=== PATIENT | male | born 1990 | race American Indian/Alaskan Native ===

== ENCOUNTER 2018-03-10 07:59 | Emergency (ER) | payer OTHER ==
--- NOTE | 2018-03-10 09:13 | EDM.PDOC ---
ED HPI GENERAL MEDICAL PROBLEM - General Chief Complaint: Lower Extremity Injury/Pain Stated Complaint: leg pain Time Seen by Provider: 03/10/18 08:10 Source of Information: Reports: Patient History Limitations: Reports: No Limitations - History of Present Illness INITIAL COMMENTS - FREE TEXT/NARRATIVE: ED ambulatory with c/o pain to right ankle since yesterday after falling while running on track During [employer]. Has been ambulatory. Also pain behind left knee . [employer] sent him to be evaluated so injury could be loogged. Right Ankle Pain Score (Numeric/FACES): 4 - Related Data Allergies Allergy/AdvReac Type Severity Reaction Status Date / Time No Known Allergies Allergy Verified 03/10/18 08:12 Home Meds: Home Meds Ibuprofen 400 mg PO ASDIRECTED PRN 03/10/18 [History] Modafinil 200 mg PO BID 03/10/18 [History] Past Medical History HEENT History: Reports: None, Impaired Vision Cardiovascular History: Reports: None Respiratory History: Reports: Sleep Apnea Gastrointestinal History: Reports: None Genitourinary History: Reports: None Musculoskeletal History: Reports: None Neurological History: Reports: None Other Neuro History: narclospy Psychiatric History: Reports: None Hematologic History: Reports: None Immunologic History: Reports: None Oncologic (Cancer) History: Reports: None Dermatologic History: Reports: None - Infectious Disease History Infectious Disease History: Reports: Chicken Pox - Past Surgical History Head Surgeries/Procedures: Reports: None Other Musculoskeletal Surgeries/Procedures:: knee surgury and l had surgury Social & Family History - Tobacco Use Smoking Status *Q: Never Smoker Second Hand Smoke Exposure: Yes - Caffeine Use Caffeine Use: Reports: Coffee, Energy Drinks, Soda - Recreational Drug Use Recreational Drug Use: No Review of Systems - Review of Systems Review Of Systems: ROS reveals no pertinent complaints other than HPI. ED EXAM, GENERAL - Physical Exam Exam: See Below Exam Limited By: No Limitations General Appearance: Alert, Mild Distress Eye Exam: Bilateral Eye: EOMI Ears: Normal External Exam Throat/Mouth: Normal Voice Neck: Full Range of Motion Respiratory/Chest: No Respiratory Distress Cardiovascular: Normal Peripheral Pulses Extremities: Limited Range of Motion, Other (Full ROM left knee, unable to palpate are of paain. No point tenderness , no crepitus, no swelling, FUll RoM) . No: Normal Range of Motion (right ankle lateral swelling, increased pain with inversion, , extremity warm) Neurological: Alert, Oriented, Normal Cognition Psychiatric: Normal Affect, Normal Mood Skin Exam: Warm, Dry, Intact Course - Vital Signs Last Recorded V/S: Last Vital Signs Temp 97 F 03/10/18 08:07 Pulse 60 03/10/18 08:07 Resp 16 03/10/18 08:07 BP 141/83 H 03/10/18 08:22 Pulse Ox 99 03/10/18 08:07 Departure - Departure Time of Disposition: 08:58 Disposition: Home, Self-Care 01 Condition: Good Clinical Impression: High ankle sprain of right lower extremity Qualifiers: Encounter type: initial encounter Qualified Code(s): S93.431A - Sprain of tibiofibular ligament of right ankle, initial encounter Muscle strain of left knee Qualifiers: Encounter type: initial encounter Qualified Code(s): S86.912A - Strain of unspecified muscle(s) and tendon(s) at lower leg level, left leg, initial encounter - Discharge Information Instructions: Ankle Sprain, [id number] Forms: ED Department Discharge Additional Instructions: Rest ice elvation, usama wrap or ankle brace tylenol aor ibuprofen for discomfort follow up one week if continued pain, sooner if worsening
== END 2018-03-10 09:35 | disposition home or self-care (01) ==
LOC: DL.ED 07:59
DX: S93.431A Sprain of tibiofibular ligament of right ankle, initial encounter (principal); S86.912A Strain of unspecified muscle(s) and tendon(s) at lower leg level, left leg, initial encounter; Z77.22 Contact with and (suspected) exposure to environmental tobacco smoke (acute) (chronic)
CPT/HCPCS: 73610-RT; 99283; 99284

== ENCOUNTER 2023-07-14 18:51 | Emergency (ER) | payer BC ==
[2023-07-14] MEDS ORDERED: Tetracaine HCl/PF 0.5% 4 ML Bottle EYELF ONE (19:44)
[2023-07-14] MEDS ORDERED: Fluorescein 1 MG Ophth Strip EYELF ONE (19:44)
[2023-07-14] MEDS ORDERED: Gentamicin 0.3% Ophth Soln 5 ML Bottle EYELF ONE (20:47)
[2023-07-14] MEDS ORDERED: prednisoLONE Acetate 1% Ophth Susp 5 ML Bottle EYELF SCH (21:00)
== END 2023-07-14 21:05 | disposition home or self-care (01) ==
LOC: DL.ED 18:51
DX: Z77.098 Contact with and (suspected) exposure to other hazardous, chiefly nonmedicinal, chemicals (principal)
CPT/HCPCS: 99283; A9270; 99282; J3490

== ENCOUNTER → 2025-05-05 | Day surgery (SDC) | payer BC ==
[~2025-05-05] MED LIST: Dextrose 5%-0.45% NaCl 1,000 ML IV SCH; Lactated Ringers 1,000 ML IV SCH; Propofol 200 MG/20 ML SDV ONE
== END ==
LOC: DL.ENDO 06:50
PROVIDERS: ATTEND Internal Medicine Gastroenterology
DX: Z12.11 Encounter for screening for malignant neoplasm of colon (principal); Z53.8 Procedure and treatment not carried out for other reasons

== ENCOUNTER 2025-05-13 05:21 | Day surgery (SDC) | payer BC ==
[2025-05-13] MEDS ORDERED: Propofol 200 MG/20 ML SDV ONE (05:47)
[2025-05-13] MEDS ORDERED: Lidocaine 2% 20 ML MDV ONE (05:48)
[2025-05-13] MEDS: Lactated Ringers 1,000 ML IV SCH (05:57)
[2025-05-13] MEDS ORDERED: Lactated Ringers 1,000 ML IV SCH (07:30)
[2025-05-13] MEDS ORDERED: Dextrose 5%-0.45% NaCl 1,000 ML IV SCH (07:30)
== END 2025-05-13 08:17 | disposition home or self-care (01) ==
LOC: DL.ENDO 05:21
PROVIDERS: ATTEND Internal Medicine Gastroenterology
DX: D50.9 Iron deficiency anemia, unspecified (principal)
CPT/HCPCS: 45378; J7120

== ENCOUNTER 2025-08-21 07:27 | Day surgery (SDC) | payer BC ==
[2025-08-21] MEDS ORDERED: Lactated Ringers 1,000 ML IV ONE (07:28)
[2025-08-21] MEDS ORDERED: Propofol 200 MG/20 ML SDV IV ONE (07:28)
[2025-08-21] MEDS: Lactated Ringers 1,000 ML IV SCH (07:56)
[2025-08-21] MEDS ORDERED: Propofol 200 MG/20 ML SDV ONE (10:43)
== END 2025-08-21 11:04 | disposition home or self-care (01) ==
LOC: DL.ENDO 07:27
PROVIDERS: ATTEND Internal Medicine Gastroenterology
DX: K29.50 Unspecified chronic gastritis without bleeding (principal); B96.81 Helicobacter pylori [H. pylori] as the cause of diseases classified elsewhere; K20.90 Esophagitis, unspecified without bleeding; K44.9 Diaphragmatic hernia without obstruction or gangrene; D50.9 Iron deficiency anemia, unspecified; E66.09 Other obesity due to excess calories; F41.1 Generalized anxiety disorder; Z68.34 Body mass index [BMI] 34.0-34.9, adult
CPT/HCPCS: 00731; 43239; J2003; J2704; J7120